=== PATIENT | female | born 1970 | race Caucasian/White ===

== ENCOUNTER 2020-01-12 12:16 | Outpatient (CLI) | payer OTHER, SELFPAY ==
--- NOTE | 2020-01-12 12:25 | XRR_ITS ---
PROCEDURE INFORMATION: Exam: XR Left Elbow Exam date and time: 01/12/2020 12:53 PM Age: 49 years old Clinical indication: Pain; Elbow; Left; Additional info: Left lateral epicondylitis, pain x 1 month TECHNIQUE: Imaging protocol: XR Left elbow. Views: 1 or 2 views. COMPARISON: No relevant prior studies available. FINDINGS: Bones/joints: No acute osseous pathology. Anatomic alignment. Soft tissues: Unremarkable soft tissues. XR/XR elbow LT 2V [id number] IMPRESSION: No acute osseous pathology.
== END 2020-01-12 12:17 | disposition home or self-care (01) ==
LOC: RAD 12:19
PROVIDERS: PCP Family Medicine; Visit Provider Family Medicine
DX: M77.12 Lateral epicondylitis, left elbow (principal)
CPT/HCPCS: 73070

== ENCOUNTER 2020-06-29 08:06 | Outpatient (CLI) | payer OTHER, SELFPAY ==
--- NOTE | 2020-06-29 08:15 | MM_ITS ---
WS: [id number] BILATERAL DIGITAL SCREENING MAMMOGRAM WITH CAD CLINICAL INFORMATION: SCREENING HISTORY: Screening mammogram. No current complaints. COMPARISON: May 12, 2019 TECHNIQUE: Bilateral CC and MLO. FINDINGS: The breast are composed of extremely dense tissue, which can limit the detection of small underlying mass lesions. Previously described cysts bilaterally have improved compared to 2019. No suspicious fo lul mass, asymmetry, calcifications, or architectural distortion. No evidence of malignancy. MM/[id number] IMPRESSION: BI-RADS: 2-Benign FOLLOW UP: 1 Year Follow-up Recommend return to annual screening mammography.
== END 2020-06-29 08:07 | disposition home or self-care (01) ==
LOC: RADSHAW 08:09
PROVIDERS: PCP Family Medicine; Visit Provider Family Medicine
DX: Z12.31 Encounter for screening mammogram for malignant neoplasm of breast (principal)
CPT/HCPCS: 77067

== ENCOUNTER 2021-05-20 07:38 | Outpatient (CLI) | payer OTHER, SELFPAY ==
--- NOTE | 2021-05-20 07:52 | MM_ITS ---
WS: [id number] DIAGNOSTIC BILATERAL DIGITAL MAMMOGRAM WITH CAD LEFT breast ultrasound, limited. HISTORY: Palpable LEFT breast mass. COMPARISON: 06/29/2020, 05/12/2019, 04/13/2018 TECHNIQUE: Bilateral craniocaudad, mediolateral oblique, and mediolateral views are submitted. Spot c ompression views RIGHT CC and ML, LEFT CC and MLO. Computer aided detection utilized. Breast composition: The breasts are heterogeneously dense, which may obscure small masses. Well-circu mscribed high density oval mass near 6:00 RIGHT breast measures 2.3 x 1.6 x 2.1 cm. Mass has been pre sent in this location on multiple prior studies and noted to be a cyst on ultrasound. Mass has slight ly increased in size and this does correspond to the palpable marker. Additional bilateral asymmetrie s are stable. Asymmetry in the lateral RIGHT breast on the CC projection resolves with additional spo t compression views. LEFT breast ultrasound, limited. Palpable area in the LEFT breast at 5:00, 2 cm from the nipple corresponds to a large simple cyst. C yst measures 1.7 x 2 x 1 x 1.6 cm. This cyst has been previously described but does appear slightly i ncreased. No solid mass. MM/[id number] IMPRESSION: BI-RADS: 2-Benign FOLLOW UP: 1 Year Follow-up Palpable area in the LEFT breast corresponds to a simple cyst. Multiple cysts h ave been previously described in the LEFT breast.
== END 2021-05-20 07:39 | disposition home or self-care (01) ==
LOC: RADSHAW 07:40
PROVIDERS: PCP Family Medicine; Visit Provider Family Medicine
DX: N63.24 Unspecified lump in the left breast, lower inner quadrant (principal); N63.15 Unspecified lump in the right breast, overlapping quadrants
CPT/HCPCS: 76642; 77066

== ENCOUNTER 2022-04-02 00:17 | Observation (INO) | payer OTHER, SELFPAY ==
[2022-04-02] VITALS (14 sets, daily range): BP systolic 92–111; BP diastolic 56–70; PULSE 63–85; RESP 13–20; TEMP 36.4–36.7; O2SAT 95–99; BMI 24.9
--- NOTE | 2022-04-02 00:22 | ED_ITS ---
HPI - Chest Pain General: Chief Complaint: Chest Pain Stated Complaint: CP Time Seen by Provider: 04/02/22 00:22 History of Present Illness: Ms. Zhong is a 52-year-old lady with history of tobaccoism who presents to the emergency department due to chest pain. She reports increased fatigue earlier this evening and was woken up from sleep shortly prior to arrival with a heaviness described as something standing on her chest in the substernal region with radiation of the back. Associated nausea and vomiting. No associated dyspnea. Intensity symptoms at worst was severe and somewhat improved with nitroglycerin. Reports this feels different than prior episodes of GERD. Denies infectious symptoms. No other specific changes in health, exacerbating, or alleviating factors identified. Positive family history for early cardiac disease in father. Positive risk factor of smoking. Patient does report a history of cardiac evaluation in 2015. Onset (ago): minute(s) Timing of current episode: constant Prior episodes: Yes (2014) Onset: awoke with symptoms Pain location: substernal Pain radiation: back Severity: severe Relieving factors: nothing Exacerbating factors: nothing Associated symptoms: Reports nausea and vomiting Treatment prior to arrival: aspirin and nitroglycerin Review of Systems General: Reports: 10 or more systems reviewed and unremarkable except in HPI and below GI: Reports: nausea and vomiting PFS ED PFSH: Medical History GERD (gastroesophageal reflux disease) Surgical History Hx of cholecystectomy Family History Other CAD (coronary artery disease) Mitral regurgitation Stroke Social History Smoking and tobacco status: current every day smoker cigarettes Packs smoked per day: 0.5 Quit status (tobacco): considering quitting Alcohol intake: never Household members: spouse Physical Exam Const: COMMON NORMALS: alert GENERAL APPEARANCE: cooperative and well developed HENMT: COMMON NORMALS: normocephalic and atraumatic HEAD & SCALP: normocephalic and atraumatic Eye: COMMON NORMALS: conjunctivae normal CONJUNCTIVA: Yes conjunctivae normal SCLERA: sclerae normal Neck/C-Spine: COMMON NORMALS: supple GENERAL: Yes trachea midline Resp: COMMON NORMALS: clear to auscultation bilaterally EFFORT & INSPECTION: Yes able to speak in complete sentences AUSCULTATION: clear to auscultation bilaterally Cardio: COMMON NORMALS: regular rate and regular rhythm RATE: regular rate RHYTHM: regular rhythm GI: COMMON NORMALS: Soft to palpation PALPATION: Yes Soft to palpation and No Tenderness to palpation present (GI) Extremity: GENERAL: Yes normal exam except as noted and No edema Neuro: COMMON NORMALS: moves all extremities SENSORIUM/ORIENTATION: Yes alert and No Orientation impaired Psych: COMMON NORMALS: mental status grossly normal and Normal thought process present THOUGHT PROCESS: Normal thought process present Course ED course: - Patient was seen and evaluated by me at bedside - Patient placed on cardiac monitors, IV access obtained - Initial evaluation notable for exam as above - Labs and xrays personally interpreted by me - Symptom treatment ordered. Patient received MDS RN aspirin and nitro. - Labs notable for leukocytosis of uncertain etiology, normal hemoglobin. No acute metabolic abnormalities. Delta troponin negative. - Imaging notable for ED read of chest x-ray with no lobar consolidation or pneumothorax. - Upon serial reexamination after treatment the patient was mildly improved - Based on patient history, evaluation, and testing as interpreted the most likely cause of the patient's condition is chest pain. Given patient's age, risk factors, and clinical story conjugation with EKG I believe that patient is moderate risk by heart score. - The results of ED evaluation were discussed with the patient including po ssible disposition options. I discussed risk stratification by heart score and estimated risk of major adverse cardiac events. The patient wishes to proceed with in hospital testing. I discussed plan for admission due to requirement for level of care not available if discharged to prevent significant worsening/deterioration. - Admitting service was contacted and Dr Badillo with the hospitalist service agreed to admit the patient - Patient was admitted without further deterioration or significant events. Note: Click bubbles or prepopulated baires in note writing are used for assistance with data collection and billing and are inherently more limited than narrative and other text portions of this note. Please use narrative for additional clinical history and defer to narrative/free test for any case of contradictory information. If information appears in only free text or click bubble it should be considered present or absent as reported. Please contact note typewriter assembly and parts inspector for clarifications of clinical information or contradictory information. MDM is a brief summary, contradictory or erroneous seeming information should be clarified and full note should be reviewed. Vital Signs: Vital signs: Vital Signs Temperature 97.6 F 04/02/22 00:26 Pulse Rate 77 04/02/22 04:00 Respiratory Rate 15 04/02/22 04:00 Blood Pressure 111/64 04/02/22 04:00 Pulse Oximetry 96 04/02/22 04:00 Oxygen Delivery Me thod 04/02/22 00:26 MDM - Chest Pain Medical Decision Making 52-year-old lady presenting with typical sounding chest pain. EKG without STEMI. Negative troponins. Heart score moderate risk. Admitted for further cardiac testing. Medical Records I reviewed the patient's medical records. Lab Data I reviewed the patient's lab results. : 04/02/22 00:30 04/02/22 00:30 Radiology Impressions Chest X-Ray 04/02/22 00:34 IMPRESSION: No acute cardiopulmonary abnormality identified. Laboratory Results WBC 15.8 10^3/uL (4.0-10.0) H 04/02/22 00:30 RBC 4.75 10^6/uL (4.1-5.3) 04/02/22 00:30 Hgb 14.2 g/dL (11.5-15.3) 04/02/22 00:30 Hct 45.5 % (37.0-47.0) 04/02/22 00:30 MCV 95.8 fl (81-99) 04/02/22 00:30 MCH 29.9 pg (28.0-34.0) 04/02/22 00:30 MCHC 31.2 g/dL (30.0-36.0) 04/02/22 00:30 RDW 13.0 % (12.1-15.1) 04/02/22 00:30 Plt Count 369 10^3/cmm (130-400) 04/02/22 00:30 MPV 10.2 fL (7.4-10.4) 04/02/22 00:30 Neut % (Auto) 85.8 % 04/02/22 00:30 Lymph % (Auto) 9.1 % 04/02/22 00:30 [place] % (Auto) 4.1 % 04/02/22 00:30 Eos % (Auto) 0.3 % 04/02/22 00:30 Baso % (Auto) 0.3 % 04/02/22 00:30 Neut # (Auto) 13.54 10^3/uL (1.8-7.7) H 04/02/22 00:30 Lymph # (Auto) 1.4 10^3/uL (0.8-4.8) 04/02/22 00:30 [place] # (Auto) 0.6 10^3/uL (0.2-0.9) 04/02/22 00:30 Eos # (Auto) 0.0 10^3/uL (0.0-0.8) 04/02/22 00:30 Baso # (Auto) 0.0 10^3/uL (0.0-0.1) 04/02/22 00:30 Nucleated RBC % (auto) 0 % 04/02/22 00:30 Nucleated RBCs # 0.0 /100WBC 04/02/22 00:30 Sodium 142 mmol/L (136-145) 04/02/22 00:30 Potassium 3.7 mmol/L (3.5-5.1) 04/02/22 00:30 Chloride 105 mmol/L (98-107) 04/02/22 00:30 Carbon Dioxide 25 mmol/L (22-29) 04/02/22 00:30 Anion Gap 15.7 (5-19) 04/02/22 00:30 BUN 9 mg/dL (6-20) 04/02/22 00:30 Creatinine 0.7 mg/dL (0.5-0.9) 04/02/22 00:30 GFR Calculation 87.5 mL/min (90-130) L 04/02/22 00:30 Glucose 97 mg/dL (65-115) 04/02/22 00:30 Calculated Osmolality 293 mOsm/kg (285-295) 04/02/22 00:30 Calcium 9.1 mg/dL (8.5-10.5) 04/02/22 00:30 Total Bilirubin 0.2 mg/dL (0.15-1.2) 04/02/22 00:30 AST 23 U/L (0-32) 04/02/22 00:30 ALT 16 U/L (0-33) 04/02/22 00:30 Alkaline Phosphatase 111 U/L (35-105) H 04/02/22 00:30 Troponin T Baseline 6 ng/L (0-10) 04/02/22 00:30 Troponin T 120 Minute 6.00 ng/L (0-10) 04/02/22 02:40 Delta Troponin T 0 ABS# (0-10) 04/02/22 02:40 NT-Pro-B Natriuret Pep 50 pg/mL (0-125) 04/02/22 00:30 Total Protein 6.6 g/dL (6.6-8.7) 04/02/22 00:30 Albumin 4.1 g/dL (3.5-5.2) 04/02/22 00:30 Globulin 2.5 g/dL (1.3-4.6) 04/02/22 00:30 Lipase 50 U/L (13-60) 04/02/22 00:30 SARS-CoV-2 Ag (Rapid) Negative (Negative) 04/02/22 01:04 Discharge Plan Discharge Patient Disposition: Placed in Observation Clinical Impression: Chest pain Coding Level of Care Code ED Fire Technology Instructor for Rosalee Fwd Exam Comprehensive
--- NOTE | 2022-04-02 00:29 | ECG_ITS ---
[facility] Test Date: 2022-04-02 Pat Name: Pauline Zhong Department: Room: Gender: Female Gore Maker: : 1970 Requested By: Ramo Leo Order Number: [id number] Rob MD: Klaus Nettles M.D. Measurements Intervals [place] Rate: 72 P: 84 [place]: 170 QRS: 78 QRSD: 71 T: 81 QT: 371 QTc: 407 Interpretive Statements SINUS RHYTHM Compared to ECG 08/26/2014 03:19:59 ST (T wave) deviation no longer present Electronically Signed On 04-03-2022 10:36:57 CDT by Klaus Nettles M.D. [id number]
--- NOTE | 2022-04-02 00:34 | XRR_ITS ---
PROCEDURE INFORMATION: Exam: XR Chest Exam date and time: 04/02/2022 12:49 AM Age: 52 years old Clinical indication: Chest pressure; Patient HX: C/O chest pain; Additional info: Cp TECHNIQUE: Imaging protocol: Radiologic exam of the chest. Views: 1 view. COMPARISON: CT abdomen pelvis w con* [id number] 04/05/2019 1:19 PM FINDINGS: Lungs: The lung parenchyma is clear. Pleural spaces: No pneumothorax. No pleural effusion. Heart/Mediastinum: The cardiomediastinal silhouette is within normal limits. Bones/joints: Cervical spinal fixation hardware noted. XR/XR chest 1V portable [id number] IMPRESSION: No acute cardiopulmonary abnormality identified.
[2022-04-02 00:55] LABS: Basophils % 0.3 %; Eosinophils % 0.3 %; Hematocrit 45.5 % (37.0-47.0); Hemoglobin 14.2 g/dL (11.5-15.3); Lymphocytes # 1.4 10^3/uL (0.8-4.8); Lymphocytes % 9.1 %; Mean Corpuscular HGB Conc 31.2 g/dL (30.0-36.0); Mean Corpuscular Hemoglobin 29.9 pg (28.0-34.0); Mean Corpuscular Volume 95.8 fl (81-99); Mean Platelet Volume 10.2 fL (7.4-10.4); Monocytes # 0.6 10^3/uL (0.2-0.9); Monocytes % 4.1 %; Neutrophils # 13.54 10^3/uL (1.8-7.7); Neutrophils % 85.8 %; Nucleated Red Blood Cells % 0 %; Platelet Count 369 10^3/cmm (130-400); Red Blood Count 4.75 10^6/uL (4.1-5.3); White Blood Count 15.8 10^3/uL (4.0-10.0)
[2022-04-02 01:07] LABS: Troponin(5th) Baseline 6 ng/L (0-10)
[2022-04-02 01:16] LABS: Alanine Aminotransferase 16 U/L (0-33); Albumin Level 4.1 g/dL (3.5-5.2); Alkaline Phosphatase 111 U/L (35-105); Aspartate Amino Transferase 23 U/L (0-32); Blood Urea Nitrogen 9 mg/dL (6-20); Calcium 9.1 mg/dL (8.5-10.5); Carbon Dioxide 25 mmol/L (22-29); Creatinine Clr Calc Pharmacy 86.7568; Globulin 2.5 g/dL (1.3-4.6); Glomerular Filtration Rate 87.5 mL/min (90-130); Glucose 97 mg/dL (65-115); Lipase 50 U/L (13-60); NT Pro B Type Natriuretic Pept 50 pg/mL (0-125); Total Bilirubin 0.2 mg/dL (0.15-1.2); Total Protein 6.6 g/dL (6.6-8.7)
[2022-04-02 01:39] LABS: SARS Covid-2 Antigen Negative (Negative)
[2022-04-02 02:24] LABS: Anion Gap 15.7 (5-19); Chloride 105 mmol/L (98-107); Osmolality Calculated 293 mOsm/kg (285-295); Potassium 3.7 mmol/L (3.5-5.1); Sodium 142 mmol/L (136-145)
[2022-04-02] MEDS: lidocaine 2% viscous 15 ML, aluminum-mag hydrox-simethicon 30 ML, sucralfate oral liq 1 GM PO (02:25)
--- NOTE | 2022-04-02 02:37 | ECG_ITS ---
[facility] Test Date: 2022-04-02 Pat Name: Pauline Zhong Department: Room: Gender: Female Senior Laboratory Technician: : 1970 Requested By: Ramo Leo Order Number: [id number] Rob MD: Klaus Nettles M.D. Measurements Intervals [place] Rate: 66 P: 87 NE: 161 QRS: 70 QRSD: 74 T: 80 QT: 393 QTc: 413 Interpretive Statements SINUS RHYTHM Compared to ECG 04/02/2022 00:29:19 No significant changes Electronically Signed On 04-03-2022 10:43:52 CDT by Klaus Nettles M.D. [id number]
[2022-04-02 03:18] LABS: Troponin 5 2HR Delta 0 ABS# (0-10)
--- NOTE | 2022-04-02 03:33 | USCV_ITS ---
Pauline Zhong Age: 52 Gender: F : 1970 Exam Date: 04/02/2022 09:39 Ordering Phys: Mati Badillo MD Technologist: Jaret Patten Exam Location: [facility] [place] Indication: chest pain BP: 132 / 74 HR: 61 Rhythm: Sinus Technical Quality: Adequate MEASUREMENTS (Male / Female) Normal Values 2D ECHO LV Diastolic Diameter PLAX 3.4 cm 4.2 - 5.9 / 3.9 - 5.3 cm LV Systolic Diameter PLAX 2.1 cm IVS Diastolic Thickness 0.9 cm 0.6 - 1.0 / 0.6 - 0.9 cm IVS Systolic Thickness 1.1 cm LVPW Diastolic Thickness 0.9 cm 0.6 - 1.0 / 0.6 - 0.9 cm LVPW Systolic Thickness 1.1 cm LVOT Diameter 2.1 cm LV Ejection Fraction 2D Teich 62.5 % LA Diameter 3.0 cm Aorta at Sinotubular Diameter 2.9 cm M-MODE LV Diastolic Diameter MM 3.9 cm 4.2 - 5.9 / 3.9 - 5.3 cm LV Systolic Diameter MM 2.2 cm LV Ejection Fraction MM Teich 77.0 % IVS Diastolic Thickness MM 0.9 cm 0.6 - 1.0 / 0.6 - 0.9 cm IVS Systolic Thickness MM 1.6 cm LVPW Diastolic Thickness MM 1.1 cm 0.6 - 1.0 / 0.6 - 0.9 cm LVPW Systolic Thickness MM 1.9 cm RV Diastolic Diameter MM 1.4 cm Aortic Annulus Diameter 3.3 cm LA Ao Ratio MM 1.0 MV E Point Septal Separation 0.7 cm DOPPLER AV Peak Velocity 126.0 cm/s LVOT Peak Velocity 108.0 cm/s AV Area Cont Eq vti 2.8 cm squared AV Area Cont Eq pk 3.1 cm squared MV Area PHT 5.0 cm squared Mitral E to A Ratio 1.8 MV E' Velocity 52.0 cm/s Mitral E to MV E' Ratio 9.2 Mitral E to LV E' Lateral Ratio 7.5 Mitral E to LV E' Septal Ratio 11.7 TR Peak Velocity 191.3 cm/s TR Peak Gradient 14.6 mmHg TV Peak E Velocity 85.0 cm/s Right Atrial Pressure 3.0 mmHg Pulmonary Artery Systolic Pressu 17.6 mmHg RV Acceleration Time 0.1 s FINDINGS Left Ventricle Left ventricle is normal in size. LV systolic function is normal with EF 55 to 60%. No regional wall motion abnormalities are seen. Right Ventricle RV is normal in size and function Right Atrium Normal in size Left Atrium Normal in size Mitral Valve Structurally normal mitral valve with trace mitral regurgitation Aortic Valve Structurally normal aortic valve. No significant stenosis or regurgitation seen. Tricuspid Valve Trace tricuspid regurgitation. Insufficient TR jet to evaluate RVSP. Pulmonic Valve Not well-visualized Pericardium Normal Aorta Normal in size IVC CONCLUSIONS LV systolic function is normal with EF of 55 to 60%. Trace mitral regurgitation Trace tricuspid regurgitation. Compared to prior echocardiogram from 2014, no significant changes are seen. Klaus Nettles MD (Electronically Signed) Final Date: 02 April 2022 18:28 S
--- NOTE | 2022-04-02 04:36 | P.HP_ITS ---
Providers/Chief Complaint Primary Care Provider: Adolfo Alves MD Chief Complaint: CP History of Present Illness Pauline Zhong is a 52 year old female with a past medical history of GERD, current smoker, who presents to [facility] for chest pain. Patient tells me that yesterday, she was feeling fatigued, tired, she described feeling malaise. No fevers, chills, no cough. This morning she woke up with severe substernal chest pain, radiating to her back, associated nausea, vomiting, and dyspnea. She tells me that the chest pain was substernal, improved with nitroglycerin she took, she also received aspirin by EMS. Currently chest pain is minimal. No calf pain, no calf swelling. No recent surgery. No hemoptysis Review of Systems Card: Reports: chest pain Resp: Reports: dyspnea Medications/Allergies Allergies Allergy/AdvReac Type Severity Reaction Status Date / Time cefaclor [From Ceclor] Allergy ALGY-Rash Verified 03/14/20 11:37 codeine Allergy ALGY-Rash Verified 03/14/20 11:37 erythromycin base Allergy ALGY-Swell Verified 03/14/20 11:37 Lip/Tongue/Throat Penicillins Allergy ALGY-Rash Verified 03/14/20 11:37 PFSH Acute PFSH: Medical History GERD (gastroesophageal reflux disease) Surgical History Hx of cholecystectomy Family History Other CAD (coronary artery disease) Mitral regurgitation Stroke Social History Smoking and tobacco status: current every day smoker cigarettes Packs smoked per day: 0.5 Quit status (tobacco): considering quitting Alcohol intake: never Household members: spouse Vitals/I&O/Wt Last Vital Signs Temp 97.6 F 04/02/22 00:26 Pulse 77 04/02/22 04:00 Resp 15 04/02/22 04:00 BP 111/64 04/02/22 04:00 Pulse Ox 96 04/02/22 04:00 O2 Del Method 04/02/22 00:26 Weight last 48 hrs Weight 65.771 kg Physical Exam Const: COMMON NORMALS: no acute distress and patient oriented x3 HENMT: COMMON NORMALS: normocephalic HEAD & SCALP: normocephalic Eye: COMMON NORMALS: Equal, round and reactive pupils present and EOMs intact bilaterally Neck/C-Spine: COMMON NORMALS: no JVD Resp: COMMON NORMALS: normal respiratory effort, No retractions, No use of accessory muscles and clear to auscultation bilaterally AUSCULTATION: clear to auscultation bilaterally Cardio: COMMON NORMALS: no JVD, regular rate, regular rhythm, S1 normal heart sound present and S2 normal heart sound present RATE: regular rate RHYTHM: regular rhythm HEART SOUNDS: S1 normal heart sound present and S2 normal heart sound present GI: COMMON NORMALS: Normal to inspection, nondistended, normoactive bowel sounds present, Soft to palpation, non-tender, No hepatosplenomegaly present, no masses and no bruits PALPATION: Yes Soft to palpation and Yes No hepatosplenomegaly present Extremity: COMMON NORMALS: no calf tenderness and no pedal edema Neuro: COMMON NORMALS: patient oriented x3, CN's II-XII intact bilaterally, moves all extremities and no focal motor deficits Psych: COMMON NORMALS: mental status grossly normal Data : 04/02/22 00:30 04/02/22 00:30 A&P Assessment and plan (1) Chest pain: Status: Acute Plan Chest pain Atypical in nature, however did improve with nitroglycerin Serial EKGs, troponins, telemetry monitoring Aspirin, statin, Coreg TSH, A1c, lipid panel Cardiac echo N.p.o. Cardiac stress test Full code Lovenox for DVT prophylaxis Attestations Medical Necessity Statement*: Patient requires hospitalization, outpatient with observation for chest pain Coding Level of Care Code Acute Storage Wharfage Clerk for [facility] Fw Diagnoses Chest pain R07.9
--- NOTE | 2022-04-02 06:34 | ECG_ITS ---
[facility] Test Date: 2022-04-02 Pat Name: Pauline Zhong Department: Room: Gender: Female License Distributor: : 1970 Requested By: Ramo Leo Order Number: [id number] Rob MD: Klaus Nettles M.D. Measurements Intervals [place] Rate: 64 P: 85 [place]: 163 QRS: 74 QRSD: 81 T: 79 QT: 402 QTc: 416 Interpretive Statements SINUS RHYTHM Compared to ECG 04/02/2022 02:37:30 No significant changes Electronically Signed On 04-03-2022 10:43:41 CDT by Klaus Nettles M.D. [email or web address].[email or web address]/[id number]
[2022-04-02 07:07] LABS: Troponin 5 6HR Delta 0 ng/L (0-12)
[2022-04-02 07:14] LABS: NT Pro B Type Natriuretic Pept 39 pg/mL (0-125)
[2022-04-02 09:10] LABS: Estmated Average Glucose 108; Hemoglobin A1C 5.4 % (4.0-6.0)
[2022-04-02 09:19] LABS: Chol HDL Ratio 4.05 mg/dL (0.0-4.40); Cholesterol 170 mg/dL (0-200); HDL Cholesterol 42 mg/dL (60-100); LDL Cholesterol Calculated 102 mg/dL (50-129); LDL HDL Ratio 2.43 RATIO (0.00-3.22); Thyroid Stimulating Hormone 1.37 uIU/mL (0.27-4.20); Triglycerides 131 mg/dL (0-150)
[2022-04-02] MEDS: enoxaparin 40 mg/0.4 mL Syringe SUBCUT (09:27)
[2022-04-02] MEDS: PARoxetine 20 mg Tablet 10 MG PO (09:28)
[2022-04-02] MEDS: aspirin 81 mg EC Tablet PO (09:29)
[2022-04-02] MEDS: pantoprazole DR 40 mg Tablet PO (09:29)
--- NOTE | 2022-04-02 16:40 | PM.MISC ---
Miscellaneous Note Note: Stress test could not be done today as the order was put in later than the cut off. Stress lab did not have medication. Plan for stress test in a.m. Patient seen this morning. Chest pain-free. Daughter at bedside. She states it resolved with 2 nitros. She has seen Dr. Kelly in the past. She has never had an angiogram. She was told she had a stress heart attack in the past. We will continue to monitor patient in the hospital. Stress test in a.m. Echo report pending. Further management as per results.
[2022-04-02] MEDS: atorvastatin 40 mg Tablet PO (20:23)
[2022-04-03] VITALS: BP 101/65; PULSE 81; RESP 16; TEMP 36.9; O2SAT 97
[2022-04-03 04:00] VITALS: BP 102/67; PULSE 73; RESP 16; TEMP 36.8; O2SAT 96
[2022-04-03 04:30] VITALS: PULSE 74
[2022-04-03] MEDS: topiramate 100 mg Tablet PO (05:53)
--- NOTE | 2022-04-03 06:00 | ECG_ITS ---
[facility] Test Date: 2022-04-03 Pat Name: Pauline Zhong Department: Room: 255 Gender: Female Director [employer]: : 1970 Requested By: Mati Badillo Order Number: [id number] Rivas MD: Nae Brewer M.D. Interpretive Statements NAME OF STUDY: LEXISCAN SESTAMIBI STRESS TEST INDICATION: Chest Pain PROCEDURE: At the baseline, the blood pressure was 110/69 mmHg, oxygen saturation 96% with a heart rate of 70 bpm. The electrocardiogram showed normal sinus rhythm, normal axis. Normal ST and T's. The Lexiscan was infused over a period of 20 seconds. A total of 0.4 milligrams of Lexiscan was infused. The stress phase was continued for a total of 5 minutes. Heart rate at the end of the stress phase was 85 bpm, oxygen saturation 98% with a blood pressure of 117/57 mmHg. The EKG at the peak infusion revealed sinus rhythm at 85 bpm with no significant ST-T wave changes. The study was terminated due to protocol completion. Sestamibi was injected 20 seconds after the Lexiscan infusion. Blood pressure at the end of the recovery phase was 130/76 mmHg, oxygen saturation 95% with a heart rate of 83 beats per minute. 30 seconds into recovery patient developed bradycardia and junctional rhythm at 50 bpm. She also received aminophylline for nausea and vomiting. CONCLUSION: 1. Normal EKG response to LexiScan infusion. 2. No LexiScan induced chest pain or cardiac arrhythmia. 3. Normal blood pressure and heart rate response. 4. Sestamibi/sestamibi perfusion scan pending; see separate report. Electronically Signed On 04-03-2022 12:59:34 CDT by Nae Brewer M.D. [id number]
[2022-04-03] MEDS: regadenoson 0.4 Mg/5 ml Syringe IVP (07:23)
[2022-04-03] MEDS: aminophylline 25 mg/mL SDV 10 mL IVP (07:30)
--- NOTE | 2022-04-03 07:32 | NMCV_ITS ---
NM hina perf SPECT r/s* [id number] Pauline Zhong Age: 52 Gender: F : 1970 Exam Date: 04/03/2022 06:58 Ordering Phys: Mati Badillo MD Technologist: FATEMEH Joseph Exam Location: [facility] Indications: CHEST PAIN STRESS TEST [facility] IMAGE PROTOCOL Rest/Stress 1 Lexiscan Day Radiopharmaceutical Dose (mCi) Administration Site Administered by Rest: Tc-99m 10.7 IV FATEMEH Bee Sestamibi Stress:Tc-99m 32.9 IV FATEMEH Bee Sestamibi Rest: 03-Apr-2022 60 Discovery 630 Stress: 03-Apr-2022 30 Discovery 630 0.4mg Lexiscan. Images obtained in supine and prone position. SPECT RESULTS Technical Quality: Excellent Raw Data Analysis: Normal Image Corrections: No attenuation or motion correction applied Summed Stress Score: 3 Summed Rest Score: 0 Summed Difference Score: 3 PERFUSION FINDINGS Small size perfusion abnormality of mild severity of mid anterior, mid anterolateral and apical lateral [place] on supine stress images with improved tracer uptake on prone stress images. This is suggestive of breast attenuation artifact. FUNCTIONAL RESULTS (calculated via Gated SPECT) Stress Image LV EF (%): 71 Stress EDV (mL):62 TID: 0.83 Stress ESV (mL):18 FUNCTIONAL FINDINGS: The left ventricle is normal in size. Transient Ischemia Dilatation of 0.83. There is normal left ventricular systolic function. The left ventricular ejection fraction is normal with a value of 71%. There is normal left ventricular wall thickening. IMPRESSIONS 1. Myocardial perfusion imaging is normal. 2. Overall left ventricular systolic function is normal without regional wall motion abnormalities, LVEF=71%. 3. No EKG changes with Lexiscan infusion. Refer to separate report for details. Nae Brewer MD (Electronically Signed) Final Date: 03 April 2022 12:50 S
[2022-04-03 07:43] VITALS: BP 132/86; PULSE 83
[2022-04-03] MEDS: pantoprazole DR 40 mg Tablet PO (08:39)
[2022-04-03] MEDS: PARoxetine 20 mg Tablet 10 MG PO (08:39)
[2022-04-03] MEDS: aspirin 81 mg EC Tablet PO (08:39)
[2022-04-03] MEDS: enoxaparin 40 mg/0.4 mL Syringe SUBCUT (08:40)
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
[2022-04-03 11:45] VITALS: BP 105/71; PULSE 66; RESP 18; TEMP 37; O2SAT 98
--- NOTE | 2022-04-03 12:57 | PM.DCS ---
Discharge Providers Date of Admission: 04/02/22 08:08 Date of Discharge: April 03, 2022 Attending Provider at Admission: Bindu Valentin MD Attending Provider at Discharge: Bindu Valentin MD Primary Care Provider: Adolfo Alves MD Diagnoses at Discharge Discharge Diagnosis (1) Chest pain: Status: Resolved Reason for Visit Reason for Visit: CP Brief History: Pauline Zhong is a 52 year old female with a past medical history of GERD, current smoker, who presents to [facility] for chest pain.? Patient tells me that yesterday, she was feeling fatigued, tired, she described feeling malaise.? No fevers, chills, no cough.? This morning she woke up with severe substernal chest pain, radiating to her back, associated nausea, vomiting, and dyspnea.? She tells me that the chest pain was substernal, improved with nitroglycerin she took, she also received aspirin by EMS.? Currently chest pain is minimal.? No calf pain, no calf swelling.? No recent surgery.? No hemoptysis Hospital Course Hospital Course Patient was admitted for chest pain. Troponin negative x3. Echo was done and stress test was done. Echo did not reveal any wall motion abnormalities and stress test did not show any evidence of ischemia. Patient remained chest pain-free throughout her hospital stay. She was advised to follow-up with her primary care doctor as an outpatient and cardiology as an outpatient. Patient in agreement and was discharged home in stable condition. Physical Exam Const: COMMON NORMALS: no acute distress and patient oriented x3 HENMT: COMMON NORMALS: normocephalic HEAD & SCALP: normocephalic Eye: COMMON NORMALS: Equal, round and reactive pupils present and EOMs intact bilaterally PUPIL: Yes Equal, round and reactive pupils present Neck/C-Spine: COMMON NORMALS: no JVD Resp: COMMON NORMALS: normal respiratory effort, No retractions, No use of accessory muscles and clear to auscultation bilaterally AUSCULTATION: clear to auscultation bilaterally Cardio: COMMON NORMALS: no JVD, regular rate, regular rhythm, S1 normal heart sound present and S2 normal heart sound present RATE: regular rate RHYTHM: regular rhythm HEART SOUNDS: S1 normal heart sound present and S2 normal heart sound present GI: COMMON NORMALS: Normal to inspection, nondistended, normoactive bowel sounds present, Soft to palpation, non-tender, No hepatosplenomegaly present, no masses and no bruits PALPATION: Yes Soft to palpation and Yes No hepatosplenomegaly present Extremity: COMMON NORMALS: no calf tenderness and no pedal edema Neuro: COMMON NORMALS: patient oriented x3, CN's II-XII intact bilaterally, moves all extremities and no focal motor deficits Psych: COMMON NORMALS: mental status grossly normal Discharge Data Studies Completed and Pending Completed Studies During Hospitalization Category Date Time Status Sestamibi Stress Test Request Routine Exams 04/03/22 06:00 Draft XR chest 1V portable [id number] Stat Exams 04/02/22 00:34 Completed NM hina perf SPECT r/s* [id number] Routine Nuc Med 04/03/22 07:32 Completed CV. echo complete* [id number] Stat Ultrasound 04/02/22 03:33 Completed Radiology Impressions Chest X-Ray 04/02/22 00:34 IMPRESSION: No acute cardiopulmonary abnormality identified. Laboratory Results WBC 15.8 10^3/uL (4.0-10.0) H 04/02/22 00:30 RBC 4.75 10^6/uL (4.1-5.3) 04/02/22 00:30 Hgb 14.2 g/dL (11.5-15.3) 04/02/22 00:30 Hct 45.5 % (37.0-47.0) 04/02/22 00:30 MCV 95.8 fl (81-99) 04/02/22 00:30 MCH 29.9 pg (28.0-34.0) 04/02/22 00:30 MCHC 31.2 g/dL (30.0-36.0) 04/02/22 00:30 RDW 13.0 % (12.1-15.1) 04/02/22 00:30 Plt Count 369 10^3/cmm (130-400) 04/02/22 00:30 MPV 10.2 fL (7.4-10.4) 04/02/22 00:30 Neut % (Auto) 85.8 % 04/02/22 00:30 Lymph % (Auto) 9.1 % 04/02/22 00:30 Jenkins % (Auto) 4.1 % 04/02/22 00:30 Eos % (Auto) 0.3 % 04/02/22 00:30 Baso % (Auto) 0.3 % 04/02/22 00:30 Neut # (Auto) 13.54 10^3/uL (1.8-7.7) H 04/02/22 00:30 Lymph # (Auto) 1.4 10^3/uL (0.8-4.8) 04/02/22 00:30 Jenkins # (Auto) 0.6 10^3/uL (0.2-0.9) 04/02/22 00:30 Eos # (Auto) 0.0 10^3/uL (0.0-0.8) 04/02/22 00:30 Baso # (Auto) 0.0 10^3/uL (0.0-0.1) 04/02/22 00:30 Nucleated RBC % (auto) 0 % 04/02/22 00:30 Nucleated RBCs # 0.0 /100WBC 04/02/22 00:30 Sodium 142 mmol/L (136-145) 04/02/22 00:30 Potassium 3.7 mmol/L (3.5-5.1) 04/02/22 00:30 Chloride 105 mmol/L (98-107) 04/02/22 00:30 Carbon Dioxide 25 mmol/L (22-29) 04/02/22 00:30 Anion Gap 15.7 (5-19) 04/02/22 00:30 BUN 9 mg/dL (6-20) 04/02/22 00:30 Creatinine 0.7 mg/dL (0.5-0.9) 04/02/22 00:30 GFR Calculation 87.5 mL/min (90-130) L 04/02/22 00:30 Glucose 97 mg/dL (65-115) 04/02/22 00:30 Estimat Average Glucose 108 04/02/22 00:30 Hemoglobin A1c 5.4 % (4.0-6.0) 04/02/22 00:30 Calculated Osmolality 293 mOsm/kg (285-295) 04/02/22 00:30 Calcium 9.1 mg/dL (8.5-10.5) 04/02/22 00:30 Total Bilirubin 0.2 mg/dL (0.15-1.2) 04/02/22 00:30 AST 23 U/L (0-32) 04/02/22 00:30 ALT 16 U/L (0-33) 04/02/22 00:30 Alkaline Phosphatase 111 U/L (35-105) H 04/02/22 00:30 Troponin T Baseline 6 ng/L (0-10) 04/02/22 00:30 Troponin T 120 Minute 6.00 ng/L (0-10) 04/02/22 02:40 Delta Troponin T 0 ABS# (0-10) 04/02/22 02:40 Troponin T Hi Sens 6Hr 6.00 ng/L (0-10) 04/02/22 06:24 Troponin T Hi Sens 6Hr Delta 0 ng/L (0-12) 04/02/22 06:24 NT-Pro-B Natriuret Pep 39 pg/mL (0-125) 04/02/22 06:24 Total Protein 6.6 g/dL (6.6-8.7) 04/02/22 00:30 Albumin 4.1 g/dL (3.5-5.2) 04/02/22 00:30 Globulin 2.5 g/dL (1.3-4.6) 04/02/22 00:30 Triglycerides 131 mg/dL (0-150) 04/02/22 06:24 Cholesterol 170 mg/dL (0-200) 04/02/22 06:24 LDL Cholesterol, Calc 102 mg/dL (50-129) 04/02/22 06:24 HDL Cholesterol 42 mg/dL (60-100) L 04/02/22 06:24 LDL/HDL Ratio 2.43 RATIO (0.00-3.22) 04/02/22 06:24 Cholesterol/HDL Ratio 4.05 mg/dL (0.0-4.40) 04/02/22 06:24 Lipase 50 U/L (13-60) 04/02/22 00:30 TSH 1.37 uIU/mL (0.27-4.20) 04/02/22 06:24 SARS-CoV-2 Ag (Rapid) Negative (Negative) 04/02/22 01:04 Vitals Last Vital Signs Temp 98.6 F 04/03/22 11:45 Pulse 66 04/03/22 11:45 Resp 18 04/03/22 11:45 BP 105/71 04/03/22 11:45 Pulse Ox 98 04/03/22 11:45 O2 Del Method 04/03/22 11:45 Discharge Plan Discharge Patient Disposition: Home Condition: Stable Prescriptions: Continued Vitamin C 1,000 mg Tablet 1,000 mg PO QAM paroxetine HCl 10 mg tablet 10 mg PO QAM Vitamin B-12 1,000 mcg Tablet 1,000 mcg PO QAM aspirin 81 mg Tablet,Delayed Release (Dr/Ec) 81 mg PO QAM cranberry 400 mg Capsule 400 mg PO QAM Rx Instructions: administer with a meal topiramate 100 mg tablet 100 mg PO QAM Claritin 10 mg Tablet 10 mg PO QAM Vitamin D3 50 mcg (2,000 unit) Tablet 50 mcg PO QAM Discontinued potassium gluconate 595 mg (99 mg) Tablet 595 mg PO QAM Discharge Orders: Discharge Order (Routine); Ordered 04/03/22 Ordered By: Bindu Valentin Referrals: Nae Brewer MD [Physician] - 04/25/22 9:00 am Adolfo Alves MD [Primary Care Provider] - 04/09/22 11:30 am Discharge Diet: Cardiac Discharge Activity: Resume usual activity Patient Instructions: Chest Pain (DC), Chest Pain Stoplight Activity Restrictions/Additional Instructions: Please return to ER if you experience any more chest pain, shortness of breath, lightheadedness. Please follow up with your doctors as directed. Discharge Attestations Time Spent in Discharge Care*: less than 30 min Quality Metrics Clinical Quality Measures [ No reported AMI, CVA or VTE this stay] Coding Level of Care Code Acute Chg FW DC note Diagnoses Chest pain R07.9
[2022-04-03 13:38] LABS: Basophils % 0.3 %; Eosinophils % 0.4 %; Hematocrit 46.2 % (37.0-47.0); Hemoglobin 14.7 g/dL (11.5-15.3); Lymphocytes # 1.9 10^3/uL (0.8-4.8); Lymphocytes % 17.2 %; Mean Corpuscular HGB Conc 31.8 g/dL (30.0-36.0); Mean Corpuscular Hemoglobin 30.1 pg (28.0-34.0); Mean Corpuscular Volume 94.5 fl (81-99); Mean Platelet Volume 9.9 fL (7.4-10.4); Monocytes # 0.7 10^3/uL (0.2-0.9); Monocytes % 6.6 %; Neutrophils # 8.39 10^3/uL (1.8-7.7); Neutrophils % 75.1 %; Nucleated Red Blood Cells % 0 %; Platelet Count 346 10^3/cmm (130-400); Red Blood Count 4.89 10^6/uL (4.1-5.3); Red Cell Distribution Width 12.6 % (12.1-15.1); White Blood Count 11.2 10^3/uL (4.0-10.0)
[2022-04-03 13:45] VITALS: BP 105/71; PULSE 66; RESP 18; TEMP 37; O2SAT 98
== END 2022-04-03 14:48 | disposition home or self-care (01) ==
LOC: ER 07:22 → MEDSURG 12:33
PROVIDERS: Family Medicine; Admitting Provider Internal Medicine; Emergency Provider Emergency Medicine; PCP Family Medicine; Visit Provider Internal Medicine
DX: R07.89 Other chest pain (principal); K21.9 Gastro-esophageal reflux disease without esophagitis; F17.210 Nicotine dependence, cigarettes, uncomplicated
CPT/HCPCS: 36415; 71045; 78452; 80053; 80061; 83036; 83690; 83880; 84443; 84484; 85025; 87426; 93005; 93017; 93306; 96365; 96372; 99285; A9500; G0378; J0280; J1650; J2785

== ENCOUNTER 2022-05-13 15:49 | Outpatient (CLI) | payer OTHER, SELFPAY ==
--- NOTE | 2022-05-13 16:02 | XR_ITS ---
WS: [id number] Exam: XR knee LT 3V* [id number] Date/Time of Exam: 05/13/2022 4:43 PM Reason For Exam: Left knee pain Comparison 12/29/2018. No fracture or dislocation. Joint compartments are well preserved. No joint effusion. XR/XR knee LT 3V* [id number] IMPRESSION: 1. Negative left knee. No change.
== END 2022-05-13 15:50 | disposition home or self-care (01) ==
PROVIDERS: PCP Family Medicine; Visit Provider Family Medicine
DX: M25.562 Pain in left knee (principal)
CPT/HCPCS: 73562

== ENCOUNTER 2023-01-06 10:42 | Outpatient (CLI) | payer OTHER, SELFPAY ==
--- NOTE | 2023-01-06 11:28 | XR_ITS ---
WS: [id number] EXAMINATION: XR shoulder LT min 2V* [id number] REASON FOR EXAM: Left shoulder pain COMPARISON: None available. ORDER DATE: 01/06/2023 11:43 AM TECHNIQUE: 3 views of the left shoulder were obtained. X-RAY FINDINGS: No fractures or dislocations. Normal motion of the shoulder with internal/external rotation. No degenerative changes. Acromioclavicular joint appears unremarkable. Limited visualization of the adjacent hemithorax is unremarkable. XR/XR shoulder LT min 2V* [id number] IMPRESSION: No fractures or dislocations of the left shoulder.
--- NOTE | 2023-01-06 11:28 | XR_ITS ---
WS: [id number] EXAMINATION: XR elbow LT 2V [id number] REASON FOR EXAM: Left elbow pain COMPARISON 01/12/2020. ORDER DATE: 01/06/2023 11:43 AM FINDINGS: There is no sign of any acute osseous or articular abnormality. There are no specific soft tissue abn ormalities. XR/XR elbow LT 2V [id number] IMPRESSION: No acute change
--- NOTE | 2023-01-06 11:28 | XR_ITS ---
WS: [id number] EXAMINATION: XR wrist LT w scaphoid [id number] REASON FOR EXAM: Left wrist pain COMPARISON: None available. ORDER DATE: 01/06/2023 11:43 AM FINDINGS: There is no sign of any acute osseous or articular abnormality. There is a tiny 1 mm smooth ovoid lul cification near and lateral to the scaphoid neck. There is no sign of an intercarpal joint narrowing or fracture. There are no specific soft tissue abnormalities. XR/XR wrist LT w scaphoid [id number] IMPRESSION: No acute change.
== END 2023-01-06 10:43 | disposition home or self-care (01) ==
PROVIDERS: PCP Family Medicine; Visit Provider Family Medicine
DX: M25.522 Pain in left elbow (principal); M25.532 Pain in left wrist; M25.512 Pain in left shoulder
CPT/HCPCS: 73030; 73070; 73110

== ENCOUNTER → 2023-01-14 10:57 | Outpatient (BNVA) | payer OTHER, SELFPAY | PROVIDERS: PCP Family Medicine; Referring Provider Family Medicine; Visit Provider Specialist | DX: S60.212A Contusion of left wrist, initial encounter (principal); Y03.0XXA Assault by being hit or run over by motor vehicle, initial encounter; X58.XXXA Exposure to other specified factors, initial encounter | CPT/HCPCS: 73110 ==

== ENCOUNTER 2023-01-14 12:11 | Outpatient (CLI) | payer OTHER, SELFPAY | END 2023-01-14 12:12 | disposition home or self-care (01) | LOC: SPT 12:12 | PROVIDERS: PCP Family Medicine; Visit Provider Specialist | DX: S60.212A Contusion of left wrist, initial encounter (principal); X58.XXXA Exposure to other specified factors, initial encounter | CPT/HCPCS: 97760; L3807 ==

== ENCOUNTER 2023-02-04 06:31 | Outpatient (CLI) | payer OTHER, SELFPAY ==
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
== END 2023-02-04 06:32 | disposition home or self-care (01) ==
PROVIDERS: PCP Family Medicine; Visit Provider Specialist
DX: S60.212A Contusion of left wrist, initial encounter (principal); X58.XXXA Exposure to other specified factors, initial encounter
CPT/HCPCS: 73200

== ENCOUNTER 2023-02-16 06:00 | Outpatient (RCR) | payer OTHER, SELFPAY | END 2023-02-16 23:59 | disposition home or self-care (01) | LOC: APT 06:00 | PROVIDERS: Visit Provider Specialist | DX: M25.532 Pain in left wrist (principal) | CPT/HCPCS: 97110; 97161 ==

== ENCOUNTER 2023-02-17 06:00 | Outpatient (RCR) | payer OTHER, SELFPAY | END 2023-03-16 23:59 | disposition home or self-care (01) | LOC: APT 06:00 | PROVIDERS: Visit Provider Specialist | DX: M25.532 Pain in left wrist (principal) | CPT/HCPCS: 97110 ==

== ENCOUNTER → 2023-02-26 08:03 | Outpatient (BNVA) | payer OTHER, SELFPAY | PROVIDERS: Visit Provider Physician Assistant | DX: M47.812 Spondylosis without myelopathy or radiculopathy, cervical region (principal); Z98.1 Arthrodesis status | CPT/HCPCS: 72050 ==

== ENCOUNTER 2023-03-11 12:43 | Outpatient (CLI) | payer OTHER, SELFPAY ==
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
== END 2023-03-11 12:44 | disposition home or self-care (01) ==
PROVIDERS: Visit Provider Physician Assistant
DX: M50.21 Other cervical disc displacement, high cervical region (principal); M25.512 Pain in left shoulder; Z98.1 Arthrodesis status; M48.02 Spinal stenosis, cervical region; M47.813 Spondylosis without myelopathy or radiculopathy, cervicothoracic region
CPT/HCPCS: 72141

== ENCOUNTER → 2023-11-19 13:54 | Outpatient (BNVA) | payer OTHER, SELFPAY | PROVIDERS: PCP Family Medicine; Visit Provider Family Medicine | DX: Z00.00 Encounter for general adult medical examination without abnormal findings (principal); F41.9 Anxiety disorder, unspecified; E53.8 Deficiency of other specified B group vitamins; E55.9 Vitamin D deficiency, unspecified; Z51.81 Encounter for therapeutic drug level monitoring | CPT/HCPCS: 80053; 82306; 82607; 84439; 84443; 85025 ==

== ENCOUNTER → 2024-01-19 13:12 | Outpatient (BNVA) | payer OTHER, SELFPAY | PROVIDERS: PCP Family Medicine; Visit Provider Family Medicine | DX: E03.9 Hypothyroidism, unspecified (principal); R13.10 Dysphagia, unspecified | CPT/HCPCS: 84439; 84443 ==

== ENCOUNTER 2024-02-08 08:48 | Outpatient (CLI) | payer OTHER, SELFPAY ==
--- NOTE | 2024-02-08 09:15 | FL_ITS ---
WS: [id number] FL barium swallow [id number] REASON FOR EXAM: The patient was examined in the standing upright AP and lateral, prone EUGENE, and supi ne positions. Swallowing of barium was monitored from the oropharynx to the stomach. A large Zenker's diverticulum is present extending from C6-T1. The ostia of the Zenker's diverticulum is 3 to 4 mm in the diverticulum lies essentially in the midline. FLUOROSCOPY TIME: 1min [id number] # OF SPOT FILMS: 1 FINDINGS: Patient was examined in the standing upright AP and lateral, prone EUGENE, and supine positions. The swa llowing of barium was monitored from the oropharynx to the stomach. A large Zenker's diverticulum is present extending from C6-T1. The ostia of the Zenker's diverticulum is 3 to 4 mm. The diverticulum is in the midline and produces moderate compression and anterior disp lacement of the lower cervical esophagus. The thoracic esophagus demonstrated no significant intrinsic or extrinsic mass effect. No mucosal abn ormality. No hiatal hernia, stricture, or reflux. FL/FL barium swallow [id number] IMPRESSION: Large Zenker's diverticulum as above.
== END 2024-02-08 08:49 | disposition home or self-care (01) ==
LOC: RAD 08:48
PROVIDERS: PCP Family Medicine; Visit Provider Family Medicine
DX: R13.10 Dysphagia, unspecified (principal); K22.5 Diverticulum of esophagus, acquired
CPT/HCPCS: 74220

== ENCOUNTER → 2024-09-19 10:37 | Outpatient (BNVA) | payer OTHER, SELFPAY | PROVIDERS: PCP Family Medicine; Visit Provider Family Medicine | DX: Z00.00 Encounter for general adult medical examination without abnormal findings (principal); E03.9 Hypothyroidism, unspecified; Z51.81 Encounter for therapeutic drug level monitoring; Z13.6 Encounter for screening for cardiovascular disorders | CPT/HCPCS: 80053; 80061; 84439; 84443; 85025 ==